=== PATIENT | male | born 1990 | race Caucasian/White ===

== ENCOUNTER 2021-05-10 19:28 | Emergency (ER) | payer SELFPAY ==
[~2021-05-10] VITALS: Ht 188 cm; Wt 79.4 kg
--- NOTE | 2021-05-10 19:44 | NUR ---
Dr. Caal at bedside for MSE.
[2021-05-10] MEDS ORDERED: LIDOCAINE 1%-EPI 1:100,000 20 ML VIAL IJ ONE (20:00)
[2021-05-10] MEDS ORDERED: CEphaleXIN 500 MG CAPSULE PO ONE (20:45)
--- NOTE | 2021-05-10 20:45 | NUR ---
Xray at bedside.
[2021-05-10] MEDS ORDERED: CEphaleXIN 500 MG CAPSULE ONE (20:52)
[2021-05-10] MEDS ORDERED: CEPH500C2 PO (21:09)
--- NOTE | 2021-05-10 21:19 | NUR ---
Patient discharged to home in stable condition. Written and verbal after care instructions given. Patient verbalizes understanding of instructions. Stressed follow up or return to ER for worsening s/s.
[2021-05-10 21:20] VITALS: BP 129/85
== END 2021-05-10 21:20 | disposition home or self-care (01) ==
LOC: ER 19:35
DX: S81.811A Laceration without foreign body, right lower leg, initial encounter (principal); Z88.2 Allergy status to sulfonamides; Z79.899 Other long term (current) drug therapy; V23.4XXA Motorcycle driver injured in collision with car, pick-up truck or van in traffic accident, initial encounter; Y93.89 Activity, other specified; Y92.410 Unspecified street and highway as the place of occurrence of the external cause; Y99.8 Other external cause status
CPT/HCPCS: 73590; A4217; A4663

== ENCOUNTER 2021-05-22 14:27 | Emergency (ER) | payer BC ==
[~2021-05-22] VITALS: Ht 188 cm; Wt 78.9 kg
[~2021-05-22 14:27] MED LIST: CEPH500C2 PO
--- NOTE | 2021-05-22 14:51 | NUR ---
PT WAS EVALUATED BY DR ANTONIO. PT WAS D/C'd TO HOME. D/C INSTRUCTIONS GIVEN TO THE PT BY DR ANTONIO.
[2021-05-22 14:53] VITALS: BP 130/77
== END 2021-05-22 14:54 | disposition home or self-care (01) ==
LOC: ER 14:27
DX: S81.811D Laceration without foreign body, right lower leg, subsequent encounter (principal); X58.XXXD Exposure to other specified factors, subsequent encounter; F17.210 Nicotine dependence, cigarettes, uncomplicated; Z88.2 Allergy status to sulfonamides
CPT/HCPCS: A4663